=== PATIENT | female | born 1995 | race African-American/Black ===

== ENCOUNTER 2019-04-01 23:40 | Emergency (ER) | payer SELFPAY ==
[~2019-04-01] VITALS: Ht 165.1 cm; Wt 130.0 kg
[2019-04-02] MEDS ORDERED: IBUPROFEN 600MG TABLET PO STA (02:48)
[2019-04-02 03:09] LABS: EOSINOPHILS % 0.9 % (0.0-5.0); HEMATOCRIT. 35.3 % (36.0-48.0); HEMOGLOBIN. 11.6 g/dL (12.0-16.0); LYMPHOCYTES % 36.2 % (20.0-50.0); MEAN CORPUSCULAR HEMOGLOBIN 27.5 pg (28.0-32.0); MEAN CORPUSCULAR VOLUME 83.6 fL (81.0-99.0); MEAN PLATELET VOLUME 8.7 fl (7.4-10.4); MONOCYTES % 9.2 % (2.0-8.0); NEUTROPHILS % 52.7 % (40.0-76.0); PLATELET 239 x1000/uL (130-400); RED BLOOD CELL COUNT 4.22 mill/uL (4.2-5.4); RED CELL DISTRIBUTION WIDTH 15.7 % (11.6-14.6)
[2019-04-02 03:14] LABS: CHLORIDE 112 mEq/L (98-107)
[2019-04-02 03:20] LABS: HCG SCREEN NEGATIVE
[2019-04-02] MEDS ORDERED: IOHEXOL-350 100 ML BOTTLE ONE (06:21)
[2019-04-02 07:36] VITALS: BP 120/60
== END 2019-04-02 07:41 | disposition home or self-care (01) ==
LOC: ER 23:40
DX: F41.1 Generalized anxiety disorder (principal); D64.9 Anemia, unspecified; R07.9 Chest pain, unspecified; F12.10 Cannabis abuse, uncomplicated
CPT/HCPCS: 36415; 71045; 71275; 80053; 84484; 84703; 85025; 85379; 93005; 93970; 99284; Q9967